=== PATIENT | female | born 1940 | race Caucasian/White ===

== ENCOUNTER 2017-12-10 08:35 | Inpatient (IN) | payer MEDICARE, OTHER ==
[~2017-12-10] VITALS: Ht 160 cm; Wt 80.0 kg
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
[2017-12-10 09:50] VITALS: BP 173/89; PULSE 89; RESP 18; TEMP 98.5; O2SAT 99
[2017-12-10 10:09] LABS: AUTOMATED NEUTROPHIL # 4.4 TH/MM3 (1.8-7.7); BASOPHIL # 0.1 TH/MM3 (0-0.2); BASOPHIL % 0.8 % (0.0-2.0); EOSINOPHIL # 0.1 TH/MM3 (0-0.4); EOSINOPHIL % 1.9 % (0.0-4.0); HEMATOCRIT 40.1 % (35.0-46.0); HEMOGLOBIN 13.6 GM/DL (11.6-15.3); LYMPH % 20.8 % (9.0-44.0); LYMPHOCYTE # 1.5 TH/MM3 (1.0-4.8); MEAN CELL VOLUME 88.5 FL (80.0-100.0); MEAN CORPUSCULAR HEMOGLOBIN 30.1 PG (27.0-34.0); MONO % 15.3 % (0.0-8.0); MONOCYTE # 1.1 TH/MM3 (0-0.9); NEUT % 61.2 % (16.0-70.0); PLATELET COUNT 267 TH/MM3 (150-450); RED BLOOD COUNT 4.53 MIL/MM3 (4.00-5.30); RED CELL DISTRIBUTION WIDTH 13.9 % (11.6-17.2); WHITE BLOOD COUNT 7.2 TH/MM3 (4.0-11.0)
[2017-12-10] MEDS ORDERED: [UNRECOGNIZED DRUG - OTHER] (10:20)
[2017-12-10] MEDS ORDERED: PROP1CAP PO (10:20)
[2017-12-10] MEDS ORDERED: METF500T PO (10:20)
[2017-12-10] MEDS ORDERED: ACYC400T PO (10:20)
[2017-12-10] MEDS ORDERED: [UNRECOGNIZED DRUG - REMARK] (10:20)
[2017-12-10 10:23] LABS: ALBUMIN 3.7 GM/DL (3.4-5.0); ALT (GPT) 19 U/L (10-53); AST (GOT) 15 U/L (15-37); BICARBONATE 26.4 MEQ/L (21.0-32.0); BLOOD UREA NITROGEN 14 MG/DL (7-18); CALCIUM 8.9 MG/DL (8.5-10.1); CHLORIDE 103 MEQ/L (98-107); CREATININE 0.96 MG/DL (0.50-1.00); GLOMERULAR FILTRATION RATE 56 ML/MIN (>89); GLUCOSE,RANDOM 155 MG/DL (74-106); SODIUM (NA) 137 MEQ/L (136-145)
[2017-12-10 10:32] LABS: BILIRUBIN, URINE NEG (NEG); BLOOD, URINE SMALL (NEG); GLUCOSE,URINE NEG (NEG); KETONE, URINE NEG (NEG); NITRITE,URINE NEG (NEG); PH, URINE 5.5 (5.0-8.5); SQUAMOUS EPITHELIAL CELL URINE <1 /hpf (0-5); URINE COLOR YELLOW (YELLW/STRAW); URINE LEUKOCYTE ESTERASE NEG (NEG)
[2017-12-10 10:33] LABS: ALKALINE PHOSPHATASE 85 U/L (45-117); TOTAL BILIRUBIN ADULT 0.6 MG/DL (0.2-1.0); TOTAL PROTEIN 8.1 GM/DL (6.4-8.2)
[2017-12-10] MEDS ORDERED: HYDR-755 PO (10:37)
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
[2017-12-10] MEDS ORDERED: ALUMINUM/MAGNESIUM/SIMETH 30 ML CUP PO PRN (19:15)
[2017-12-10] MEDS ORDERED: MAGNESIUM HYDROXIDE SUSP 30 ML CUP PO PRN (19:15)
[2017-12-10 20:02] VITALS: BP 141/79; PULSE 72; RESP 17; O2SAT 97
[2017-12-10 21:20] VITALS: BP 167/83; PULSE 72; RESP 17; TEMP 97.8
[2017-12-10] MEDS: ACYCLOVIR 200 MG CAP PO SCH (22:06)
[2017-12-10 23:20] VITALS: BP 155/85; PULSE 66
[2017-12-11 06:22] VITALS: BP 116/65; PULSE 74; RESP 18; TEMP 98.1; O2SAT 95
[2017-12-11] MEDS ORDERED: ACETAMINOPHEN 325 MG TAB PO PRN (08:45)
[2017-12-11] MEDS ORDERED: diphenhydrAMINE HCL 50 MG CAP PO PRN (08:45)
[2017-12-11] MEDS ORDERED: hydrOXYzine HCL 50 MG TAB PO PRN (08:45)
[2017-12-11] MEDS ORDERED: ALUMINUM/MAGNESIUM/SIMETH 30 ML CUP PO PRN (08:45)
[2017-12-11] MEDS ORDERED: MAGNESIUM HYDROXIDE SUSP 30 ML CUP PO PRN (08:45)
[2017-12-11] MEDS ORDERED: PROPRANOLOL HCL LA 120 MG CAP PO SCH (09:00)
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
[2017-12-11] MEDS ORDERED: ARTIFICIAL TEARS OPTH SOLN 15 ML BTL EACH EYE PRN (09:15)
[2017-12-11] MEDS: ACYCLOVIR 200 MG CAP PO SCH ×2 (09:18→20:34)
[2017-12-11] MEDS: metFORMIN HCL 500 MG TAB PO SCH (09:18)
[2017-12-11] MEDS: PROPRANOLOL HCL LA 60 MG CAP PO SCH (10:00)
[2017-12-11 11:12] LABS: BLOOD UREA NITROGEN 12 MG/DL (7-18); CALCIUM 8.8 MG/DL (8.5-10.1); CHLORIDE 102 MEQ/L (98-107); CHOLESTEROL 295 MG/DL (120-200); CREATININE 0.95 MG/DL (0.50-1.00); GLOMERULAR FILTRATION RATE 57 ML/MIN (>89); GLUCOSE,RANDOM 194 MG/DL (74-106); SODIUM (NA) 136 MEQ/L (136-145); TRIGLYCERIDES 283 MG/DL (42-150)
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
[2017-12-11 11:37] LABS: CHOLESTEROL/ HDL RATIO 5.17 RATIO; LDL CHOLESTEROL 181 MG/DL (0-99)
[2017-12-11 11:53] LABS: HEMOGLOBIN A1C 6.7 % (4.3-6.0)
[2017-12-11 18:00] VITALS: BP 138/58; PULSE 76; RESP 17; TEMP 98.1; O2SAT 95
[2017-12-12 05:48] VITALS: BP 119/59; PULSE 68; RESP 18; TEMP 97.7; O2SAT 94
[2017-12-12] MEDS: ACYCLOVIR 200 MG CAP PO SCH ×2 (08:28→20:41)
[2017-12-12] MEDS: metFORMIN HCL 500 MG TAB PO SCH (08:28)
[2017-12-12] MEDS: PROPRANOLOL HCL LA 60 MG CAP PO SCH (08:28)
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
--- NOTE | 2017-12-12 16:03 | HHI.PYPN ---
Subjective Chief Complaint: patient mixed manic psychotic paranoid Remarks Patient seen in [place] with nurse Kai, patient continues with rapid pressured speech intrusiveness and grandiosity.. She gave a counselor Sari 2 pages of closely handwritten statement. Patient continues with very little insight into her disease devastation the bipolar is made with her. Continuously attempts to deflect responsibility for her behavior under asked me why I'm not prescribing medication for her or her is not here. We did discuss medications. Patient is willing to be started on Depakote 250 mg at at bedtime check a blood level in 3 days and then titrate medication. We'll also start her Klonopin 0.5 mg at at bedtime to help her with her sleep Review of Systems Except as stated in HPI: all other systems reviewed are Neg Mental Status Examination Appearance: Appropriate (appears younger than stated age) Consciousness: Alert Orientation: x4 Motor Activity: Other (and bad) Speech: Unremarkable Language: Adequate Fund of Knowledge: Adequate Attention and Concentration: Adequate Memory: Unremarkable (no significant impairment noted) Mood: Angry Affect: Other (slight increase range and intensity) Thought Process & Associations: Intact, Linear Thought Content: Delusional Hallucination Type: None Delusion Type: Paranoid Suicidal Ideation: No Suicidal Plan: No Suicidal Intention: No Homicidal Ideation: No Homicidal Plan: No Homicidal Intention: No Insight: Poor Judgment: Impulsive Results Vitals/IOs Vital Signs Date Time Temp Pulse Resp B/P (MAP) Pulse Ox O2 Delivery O2 Flow Rate FiO2 12/12/17 05:48 97.7 68 18 119/59 (79) 94 12/10/17 20:02 Room Air Intake and Output 12/12/17 12/12/17 12/13/17 08:00 16:00 00:00 Intake Total 240 ml 240 ml Balance 240 ml 240 ml Assessment & Plan Problem List: (1) Bipolar disorder ICD Codes: F31.9 - Bipolar disorder, unspecified Status: Acute (2) Delusional disorder ICD Codes: F22 - Delusional disorders Status: Acute Assessment & Plan Estimated LOS: days patient continues manic psychotic delusional somewhat grandiose. She medication adjustments above Justification for Cont. Inpt. At this time patient decompensated placed in a lower level of care Discharge Planning Discharge plan still need to be determined Request HC Surrog/Guard Advoc?: No Problem Qualifiers (1) Bipolar disorder: Qualified Codes: F31.64 - Bipolar disorder, current episode mixed, severe, with psychotic features Mp Peters MD Dec 12, 2017 16:03
[2017-12-12] MEDS: DIVALPROEX SODIUM E.R. 250 MG TAB PO SCH (16:33)
[2017-12-12 18:00] VITALS: BP 167/73; PULSE 74; RESP 18; TEMP 97.6; O2SAT 97
[2017-12-12] MEDS: clonazePAM 0.5 MG TAB PO SCH (20:41)
[2017-12-13 06:04] VITALS: BP 128/70; PULSE 70; RESP 16; TEMP 98.3; O2SAT 95
[2017-12-13 06:28] VITALS: BP 128/70; PULSE 70; RESP 16; TEMP 98.3; O2SAT 95
[2017-12-13] MEDS: ACYCLOVIR 200 MG CAP PO SCH ×2 (08:25→21:07)
[2017-12-13] MEDS: PROPRANOLOL HCL LA 60 MG CAP PO SCH (08:25)
[2017-12-13] MEDS: metFORMIN HCL 500 MG TAB PO SCH (08:25)
[2017-12-13] MEDS: CHOLECALCIFEROL (VIT D3) 1000 UNIT TAB PO SCH (08:25)
[2017-12-13] MEDS: DIVALPROEX SODIUM E.R. 250 MG TAB PO SCH (08:25)
--- NOTE | 2017-12-13 14:44 | HHI.PYPN ---
Subjective Chief Complaint: patient mixed manic psychotic paranoid Remarks Patient seen in [place] with counselor very. Patient calm cooperative still little insight into her own behaviors. Continues to deflect all responsibility towards 's behaviors. There is been conversation with patient's daughters who state the is overall improved eye. Patient so far compliant with medications. We'll states she needs her thyroid medicine and her Briel.. We will have nurse contact patient's pharmacy to verify these medications Review of Systems Except as stated in HPI: all other systems reviewed are Neg Mental Status Examination Appearance: Appropriate (appears younger than stated age) Consciousness: Alert Orientation: x4 Motor Activity: Other (and bad) Speech: Unremarkable Language: Adequate Fund of Knowledge: Adequate Attention and Concentration: Adequate Memory: Unremarkable (no significant impairment noted) Mood: Angry Affect: Other (slight increase range and intensity) Thought Process & Associations: Intact, Linear Thought Content: Delusional Hallucination Type: None Delusion Type: Paranoid Suicidal Ideation: No Suicidal Plan: No Suicidal Intention: No Homicidal Ideation: No Homicidal Plan: No Homicidal Intention: No Insight: Poor Judgment: Impulsive Results Vitals/IOs Vital Signs Date Time Temp Pulse Resp B/P (MAP) Pulse Ox O2 Delivery O2 Flow Rate FiO2 12/13/17 06:28 98.3 70 16 128/70 (89) 95 12/10/17 20:02 Room Air Intake and Output 12/13/17 12/13/17 12/14/17 08:00 16:00 00:00 Intake Total 240 ml Balance 240 ml Assessment & Plan Problem List: (1) Bipolar disorder ICD Codes: F31.9 - Bipolar disorder, unspecified Status: Acute (2) Delusional disorder ICD Codes: F22 - Delusional disorders Status: Acute Assessment & Plan Estimated LOS: days patient remains manic with pressured speech though the rate is somewhat slower. Still very little insight into her disease. For now continue treatment Justification for Cont. Inpt. At this time patient decompensated placed in a lower level of care Discharge Planning Discharge needs to be considered the patient returning to her home, perhaps staying with daughters out of state for a while. Request HC Surrog/Guard Advoc?: No Problem Qualifiers (1) Bipolar disorder: Qualified Codes: F31.64 - Bipolar disorder, current episode mixed, severe, with psychotic features Mp Peters MD Dec 13, 2017 14:44
[2017-12-13] MEDS ORDERED: MONT10TA4 PO (14:52)
[2017-12-13] MEDS ORDERED: MIRA25TA PO (14:52)
[2017-12-13] MEDS ORDERED: FLUT1SPR5 EACH NARE (14:52)
[2017-12-13] MEDS ORDERED: HYDR-3133 PO (14:52)
[2017-12-13 18:11] VITALS: BP 118/58; PULSE 72; RESP 18; TEMP 98.3; O2SAT 96
[2017-12-13] MEDS: clonazePAM 0.5 MG TAB PO SCH (21:07)
[2017-12-14] MEDS: PROPRANOLOL HCL LA 60 MG CAP PO SCH (09:00)
[2017-12-14] MEDS: DIVALPROEX SODIUM E.R. 250 MG TAB PO SCH (09:22)
[2017-12-14] MEDS: metFORMIN HCL 500 MG TAB PO SCH (09:22)
[2017-12-14] MEDS: ACYCLOVIR 200 MG CAP PO SCH ×2 (09:23→20:47)
[2017-12-14] MEDS: CHOLECALCIFEROL (VIT D3) 1000 UNIT TAB PO SCH (09:23)
--- NOTE | 2017-12-14 13:17 | HHI.PYPN ---
Subjective Chief Complaint: patient mixed manic psychotic paranoid Remarks Patient seen in dayroom with floor staff, patient continues somewhat intrusive hyperverbal though it is softening. She is compliant with the medication. She continues to attempt to deflect all focus on to her . Patient is scheduled for [facility] hearing tomorrow. Review of Systems Except as stated in HPI: all other systems reviewed are Neg Mental Status Examination Appearance: Appropriate (appears younger than stated age) Consciousness: Alert Orientation: x4 Motor Activity: Other (and bad) Speech: Unremarkable Language: Adequate Fund of Knowledge: Adequate Attention and Concentration: Adequate Memory: Unremarkable (no significant impairment noted) Mood: Angry Affect: Other (slight increase range and intensity) Thought Process & Associations: Intact, Linear Thought Content: Delusional Hallucination Type: None Delusion Type: Paranoid Suicidal Ideation: No Suicidal Plan: No Suicidal Intention: No Homicidal Ideation: No Homicidal Plan: No Homicidal Intention: No Insight: Poor Judgment: Impulsive Results Vitals/IOs Vital Signs Date Time Temp Pulse Resp B/P (MAP) Pulse Ox O2 Delivery O2 Flow Rate FiO2 12/13/17 18:11 98.3 72 18 118/58 (78) 96 12/10/17 20:02 Room Air Assessment & Plan Problem List: (1) Bipolar disorder ICD Codes: F31.9 - Bipolar disorder, unspecified Status: Acute (2) Delusional disorder ICD Codes: F22 - Delusional disorders Status: Acute Assessment & Plan Estimated LOS: days patient continues somewhat manic with pressured speech intrusiveness, also delusional to suspect relationship with her . Compliant medications. Awaiting [facility] hearing tomorrow. Awaiting Depakote blood level tomorrow Justification for Cont. Inpt. At this time patient will decompensate if placed in a lower level of care Discharge Planning Anticipating returning home patient stabilize Request HC Surrog/Guard Advoc?: No Problem Qualifiers (1) Bipolar disorder: Qualified Codes: F31.64 - Bipolar disorder, current episode mixed, severe, with psychotic features Mp Peters MD Dec 14, 2017 13:17
[2017-12-14 18:04] VITALS: BP 140/70; PULSE 76; RESP 16; TEMP 97.9; O2SAT 95
[2017-12-14] MEDS: LEVOTHYROXINE SODIUM 50 MCG TAB PO SCH (18:18)
[2017-12-14] MEDS: clonazePAM 0.5 MG TAB PO SCH (20:47)
[2017-12-15 05:29] VITALS: BP 140/69; PULSE 70; RESP 16; TEMP 98.1; O2SAT 95
[2017-12-15] MEDS: LEVOTHYROXINE SODIUM 50 MCG TAB PO SCH (05:58)
[2017-12-15] MEDS: PROPRANOLOL HCL LA 60 MG CAP PO SCH (09:00)
[2017-12-15] MEDS: metFORMIN HCL 500 MG TAB PO SCH (09:26)
[2017-12-15] MEDS: DIVALPROEX SODIUM E.R. 250 MG TAB PO SCH (09:26)
[2017-12-15] MEDS: CHOLECALCIFEROL (VIT D3) 1000 UNIT TAB PO SCH (09:26)
[2017-12-15] MEDS: ACYCLOVIR 200 MG CAP PO SCH (09:30)
[2017-12-15] MEDS ORDERED: LEVO.05 PO (11:39)
[2017-12-15] MEDS ORDERED: DIVA250ER PO (11:39)
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
== END 2017-12-15 12:20 | disposition home or self-care (01) | DRG 885 ==
LOC: NEPD 08:35 → NEDA 19:17 → NEDH 19:45 → H250 21:20
PROVIDERS: ADMIT Psychiatry & Neurology Psychiatry; ATTEND Psychiatry & Neurology Psychiatry
DX: F31.64 Bipolar disorder, current episode mixed, severe, with psychotic features (principal); G30.9 Alzheimer's disease, unspecified; F02.81 Dementia in other diseases classified elsewhere, unspecified severity, with behavioral disturbance; E11.9 Type 2 diabetes mellitus without complications; I10 Essential (primary) hypertension; Z87.891 Personal history of nicotine dependence; G47.30 Sleep apnea, unspecified; E55.9 Vitamin D deficiency, unspecified; M79.671 Pain in right foot; Z79.84 Long term (current) use of oral hypoglycemic drugs
CPT/HCPCS: 80048; 80053; 80061; 80164; 80307; 81001; 82306; 82607; 83036; 84443; 85025